=== PATIENT | female | born 1985 ===

== ENCOUNTER 2018-11-21 09:35 | Emergency (ER) | payer MEDICAID ==
[~2018-11-21] VITALS: Ht 152.4 cm; Wt 59.4 kg
[2018-11-21 09:38] VITALS: BP 127/87; Ht 152.4 cm; Wt 59.4 kg
== END 2018-11-21 11:05 | disposition home or self-care (01) ==
LOC: ED 09:35
DX: J06.9 Acute upper respiratory infection, unspecified (principal); R21 Rash and other nonspecific skin eruption